=== PATIENT | male | born 1970 | race Caucasian/White ===

== ENCOUNTER 2025-05-14 16:26 | Outpatient (AMB) | payer BC, SELFPAY | END 2025-05-14 16:27 | disposition home or self-care (01) | LOC: HO.HMGAL 16:26 | PROVIDERS: Visit Provider Registered Nurse Emergency | DX: J30.89 Other allergic rhinitis (principal) | CPT/HCPCS: 95117; 95165 ==

== ENCOUNTER 2025-05-28 16:28 | Outpatient (AMB) | payer BC, SELFPAY | END 2025-05-28 16:30 | disposition home or self-care (01) | LOC: HO.HMGAL 16:28 | PROVIDERS: PCP Nurse Practitioner Family; Visit Provider Registered Nurse Emergency | DX: J30.89 Other allergic rhinitis (principal) | CPT/HCPCS: 95117; 95165 ==

== ENCOUNTER 2025-07-02 16:10 | Outpatient (AMB) | payer BC, SELFPAY | END 2025-07-02 16:11 | disposition home or self-care (01) | LOC: HO.HMGAL 16:10 | PROVIDERS: PCP Nurse Practitioner Family; Visit Provider Registered Nurse Emergency | DX: J30.89 Other allergic rhinitis (principal) | CPT/HCPCS: 95117; 95165 ==

== ENCOUNTER 2025-08-13 16:21 | Outpatient (AMB) | payer BC, SELFPAY | END 2025-08-13 16:22 | disposition home or self-care (01) | LOC: HO.HMGAL 16:21 | PROVIDERS: PCP Nurse Practitioner Family; Visit Provider Registered Nurse Emergency | DX: J30.89 Other allergic rhinitis (principal) | CPT/HCPCS: 95117; 95165 ==